=== PATIENT | female | born 2000 | race American Indian/Alaskan Native ===

== ENCOUNTER 2021-09-09 00:01 | Emergency (ER) | payer SELFPAY ==
[2021-09-09 00:21] VITALS: BP 110/70
[2021-09-09 01:35] LABS: Basophils # (Auto) 0.2 K/mm3 (0.0-0.1); Basophils % (Auto) 2.5 % (0.0-1.8); Eosinophils % (Auto) 0.6 % (0.0-4.3); Hematocrit 36.4 % (30.3-42.9); Hemoglobin 12.2 gm/dl (10.1-14.3); Lymphocytes # (Auto) 0.9 K/mm3 (1.2-5.4); Lymphocytes % (Auto) 10.8 % (13.4-35.0); Mean Corpuscular HGB Conc 34 % (30-34); Mean Corpuscular Volume 91 fl (79-97); Monocytes # (Auto) 0.3 K/mm3 (0.0-0.8); Monocytes % (Auto) 4.1 % (0.0-7.3); Platelet Count 290 K/mm3 (140-440); Red Blood Count 3.98 M/mm3 (3.65-5.03); Red Cell Distribution Width 13.9 % (13.2-15.2)
[2021-09-09 01:38] LABS: Alanine Aminotransferase 9 units/L (7-56); Albumin 4.3 g/dL (3.9-5); BUN/Creatinine Ratio 10; Blood Urea Nitrogen 8 mg/dL (7-17); Calcium 9.9 mg/dL (8.4-10.2); Hemolysis Index 0
--- NOTE | 2021-09-09 01:41 | Emergency Department Report ---
ED General Adult HPI - General Chief complaint: Abdominal Pain Stated complaint: VOMITING BLOOD Time Seen by Provider: 09/09/21 01:36 Source: patient, EMS Mode of arrival: Ambulatory Limitations: No Limitations - History of Present Illness Initial comments: 29-year-old [place] female status post left femur surgery just yesterday asthma department complaining of developing nausea and vomiting about an hour or 2 after surgery Continues to have some issues with nausea vomiting since that time. Reports no diarrhea, no chest pain, fever, chills, sweats has seen occasional streaks of blood in the vomit but reports no melena no hematemesis Radiation: non-radiation Improves with: none Associated Symptoms: denies other symptoms - Related Data Previous Rx's Medication Instructions Recorded Last Taken Type Hyoscyamine Subl [Levsin Sl 0.125 0.125 mg SL Q6HR PRN #20 tab 09/09/21 Unknown Rx TAB] Ondansetron [Zofran ODT TAB] 8 mg PO Q12HR #14 tab.rapdis 09/09/21 Unknown Rx Allergies Allergy/AdvReac Type Severity Reaction Status Date / Time No Known Allergies Allergy Unverified 09/09/21 00:21 ED Review of Systems ROS: Stated complaint: VOMITING BLOOD Other details as noted in HPI Comment: All other systems reviewed and negative ED Past Medical Hx - Past Medical History Previous Medical History?: No - Surgical History Past Surgical History?: Yes Additional Surgical History: Left Humerus Hardware - Social History Smoking Status: Never Smoker Substance Use Type: None - Medications Home Medications: Home Medications Medication Instructions Recorded Confirmed Last Taken Type Hyoscyamine Subl [Levsin Sl 0.125 0.125 mg SL Q6HR PRN #20 tab 09/09/21 Unknown Rx TAB] Ondansetron [Zofran ODT TAB] 8 mg PO Q12HR #14 tab.rapdis 09/09/21 Unknown Rx ED Physical Exam - General Limitations: No Limitations General appearance: alert, in no apparent distress - Head Head exam: Present: atraumatic, normocephalic - Eye Eye exam: Present: normal appearance, PERRL Pupils: Present: normal accommodation - ENT ENT exam: Present: normal exam, normal orophraynx, mucous membranes moist, TM's normal bilaterally - Neck Neck exam: Present: normal inspection, full ROM - Respiratory Respiratory exam: Present: normal lung sounds bilaterally. Absent: respiratory distress, wheezes, rales - Cardiovascular Cardiovascular Exam: Present: regular rate, normal rhythm. Absent: systolic murmur, diastolic murmur, rubs, gallop - GI/Abdominal GI/Abdominal exam: Present: soft, tenderness (Vague tenderness to the mid gastric region), normal bowel sounds. Absent: hyperactive bowel sounds, h ypoactive bowel sounds, organomegaly, mass, bruit, pulsatile mass - Extremities Exam Extremities exam: Present: normal inspection - Back Exam Back exam: Present: normal inspection - Neurological Exam Neurological exam: Present: alert, oriented X3 - Psychiatric Psychiatric exam: Present: normal affect, normal mood - Skin Skin exam: Present: warm, dry, intact, normal color. Absent: rash ED Course Vital Signs 09/09/21 00:02 Temperature 98.9 F Pulse Rate 70 Respiratory 18 Rate Blood Pressure 110/70 O2 Sat by Pulse 99 Oximetry ED Medical Decision Making - Lab Data Result diagrams: 09/09/21 00:59 09/09/21 00:59 Critical care attestation.: If time is entered above; I have spent that time in minutes in the direct care of this critically ill patient, excluding procedure time. ED Disposition Clinical Impression: Post-operative nausea and vomiting Disposition: 01 HOME / SELF CARE / HOMELESS Is pt being admited?: No Does the pt Need Aspirin: No Condition: Stable Instructions: Nausea and Vomiting, Adult, [id number], Nausea and Vomiting, Adult, Abdominal Pain (ED) Additional Instructions: Patient evaluated emergency department today for nausea and vomiting no emergent medical condition was discovered. No significant electrolyte abnormalities were discovered. Discharge appears to be secondary to the anesthesia as well as began to occur. Nausea and Vomiting After Surgery By Dara Woo RN, MSN, FN Updated on February 14, 2021 Medically reviewed by Dara Matt MD Print Postoperative nausea and vomiting (PONV) is a major problem during recovery from surgery. It's also quite common. After surgery:1 30% of people have vomiting 50% have nausea 80% of high-risk people have both PONV can lead to complications. These include dehydration, discomfort, pain, and problems with the incision. This article looks at the possible complications, reasons for nausea and vomiting, and how to prevent it. Tips for Preventing Nausea and Vomiting After Surgery Claribel / JR Saab Complications of Nausea and Vomiting Feeling nauseous after surgery is uncomfortable. It can drastically slow your return to normal eating and drinking. Vomiting is more serious. It can cause dehydration and pain. Plus it puts a lot of stress on some incisions. That can lead to major complications. The sides of the incision can pull apart. Organs may even protrude through the opening. These problems are called dehiscence and evisceration. When PONV starts, quick treatment can prevent serious issues. When Surgical Incisions Open Why Is Nausea Common After Surgery? PONV happens for several reasons. It's a known risk of anesthesia. Other causes include: Dehydration Taking medications on an empty stomach Returning too quickly to a normal diet Lack of preventative medication Research suggests you're more like to have PONV if you're:2 Female Over 50 A non-smoker Prone to motion sickness The type of anesthesia also plays a role. If you're sedated for an outpatient or dental procedure, you'll get less anesthesia and for less time than the average person having major surgery. Less medication means you're less likely to have nausea and vomiting after surgery. You're also more likely to tolerate food and beverages soon after the procedure. Some people have nausea and vomiting every time they go under anesthesia. That makes preventing the problem more important. This may mean getting medications before and even during surgery. That way, they're in full effect when you really need them. If you have chronic nausea, you're at a far higher risk of POVN. It's common for anesthesia to make your typical urge to vomit even worse.3 Recap PONV is unpleasant and can cause problems with your incision. It can be caused by many things, including dehydration and medication. You're more likely to have it if you're female and over 50. You can be given medications before or during surgery to prevent PONV. Prevention With proper planning and communication, you and your medical care team can prevent nausea and vomiting after surgery. Talk to Your Care Team If you have chronic nausea or you've had PONV before, you're at risk of having it again.4 Talk to your surgeon and anesthesiologist about it. They may be able to choose medications that are less likely to cause nausea and vomiting. Your care team can also provide preventative medications such as:5 Zofran (ondansetron) Phenergan (promethazine) Benadryl (diphenhydramine) These medications can also be used if you're nauseous after surgery.5 Speak up as soon as you notice nausea. How to Prevent Post-Op Nausea Prevent Dehydration Staying hydrated before and after surgery can help prevent PONV. You need to stay away from food and non-clear liquids for safety reasons. But anesthesiologists sometimes okay clear fluids closer to the time of surgery.6 Dehydration can be a problem after procedures, as well. Drinks containing electrolytes can help hydrate you more quickly than other beverages. If you're recovering at home, have a sports drink or Pedialyte. If you're in the hospital, ask the nurse for something with electrolytes. Why You Can't Eat or Drink Before Surgery Recap Your care team can help prevent PONV with the choice of anesthesia drugs and ant i-nausea medications. It can also help to stay hydrated. Control Your Pain Don't skip your pain medication because you're nauseous. You may be concerned that the drugs will make you sick. But research suggests pain makes you more likely to vomit. Pain control can make it less likely.7 Dont Navas Your Diet Slowly return to normal foods to minimize nausea. Usually, after surgery, you don't get to eat until you're passing gas. After that, stick with small amounts of clear fluids for a few hours. If they don't bother you, try to drink some juice or milk. Assuming you're still doing well, then introduce some soft foods. Applesauce or pudding are common choices. Go back to a normal diet only if you've been able to tolerate everything so far. Keep it slow and cautious, though. Recap Pain makes vomiting more likely. Stick to your pain medications even if you're worried they'll make you nauseous. Return to food slowlyclear liquids, then other fluids, soft food, and finally, regular food if you've tolerated everything else. Temperature May Be Carcamo Some people are sensitive to the temperature of fluids. If cold drinks tend to bother your stomach, ask for room-temperature or warmer drinks. Or, if hot drinks are a problem, ask for cooler options. Getting overheated makes some people nauseous. If you're feeling overly warm, do what you can to cool off. Use Lashae Lashae, in general, has been shown to help with nausea.8 Candy and other foods that contain real lashae can be helpful. Be sure they contain real lashae and not just flavoring. Some people make tea with fresh lashae and drink it hot or over ice for relief. Flat lashae evgeny may be soothing to the stomach and help with nausea.9 Avoid carbonated drinks, though. Contrary to popular belief, they can make nausea worse. Again, check the label to see if it contains actual lashae or artificial flavor. Lashae and Nausea Avoid Strong Smells Avoid heavily scented people and places if you're prone to nausea after ane sthesia. For hospital stays, tell your care team you're avoiding fragrances. Ask people who may visit you during recovery to skip body sprays, perfume, and other fragranced products. Ask for foods with mild smells, too. Strong odors can easily turn a bout of nausea into a bout of vomiting, so don't hesitate to stay away from room fresheners or even fresh collins and cut grass. Recap Room-temperature liquids may be easier on your stomach. Don't let yourself get overheated. Lashae can help with nausea. Make sure products contain real lashae and not artificial flavors. Avoid strong odors. Summary PONV causes discomfort and is hard on incisions. It has many causes. Medications before or during surgery can prevent PONV. To combat nausea: Stay hydrated Manage your pain Return slowly to a normal diet Try warm drinks instead of cold Manage your body temperature Eat/drink lashae Avoid strong odors Let someone know as soon as you feel nauseous. A Word From [facility] Prevention is incredibly important when it comes to postoperative nausea and vomiting. It's far easier to prevent than to treat. Communication is carcamo, both before and after surgery. Keep your care team informed so they can help you avoid PONV and the problems it can create. Prescriptions: Hyoscyamine Subl [Levsin Sl 0.125 TAB] 0.125 mg SL Q6HR PRN #20 tab PRN Reason: abdominal cramps and spasms Ondansetron [Zofran ODT TAB] 8 mg PO Q12HR #14 tab.uriel
[2021-09-09] MEDS ORDERED: ONDANSETRON 4 MG ODT TAB PO STA (02:54)
[2021-09-09] MEDS ORDERED: HYOSCYAMINE SUBL 0.125 MG TAB SL ONE (02:54)
== END 2021-09-09 03:58 | disposition home or self-care (01) ==
LOC: ED 00:01
DX: R11.2 Nausea with vomiting, unspecified (principal); Z98.890 Other specified postprocedural states; Z79.899 Other long term (current) drug therapy; Z48.811 Encounter for surgical aftercare following surgery on the nervous system
CPT/HCPCS: 36415; 80053; 83690; 84703; 85025; 99284; J3490; Q0162